=== PATIENT | female | born 1975 | race Caucasian/White ===

== ENCOUNTER 2022-01-01 10:50 | Emergency (ER) | payer OTHER ==
[~2022-01-01] VITALS: Ht 165.1 cm; Wt 95.5 kg
[2022-01-01 13:31] VITALS: BP 137/93
== END 2022-01-01 13:58 | disposition home or self-care (01) ==
LOC: EMS 10:50
DX: S93.401A Sprain of unspecified ligament of right ankle, initial encounter (principal); W10.8XXA Fall (on) (from) other stairs and steps, initial encounter; Y93.E2 Activity, laundry; Y92.89 Other specified places as the place of occurrence of the external cause; Y99.8 Other external cause status
CPT/HCPCS: 99284; 73610-TC; 73630-TC; Z7502

== ENCOUNTER 2024-12-30 08:53 | Emergency (ER) | payer OTHER ==
[~2024-12-30] VITALS: Ht 165.1 cm; Wt 95.9 kg
[2024-12-30] MEDS ORDERED: IBUP-45 PO (09:05)
[2024-12-30] MEDS ORDERED: METF-1211 PO (09:05)
[2024-12-30 09:20] LABS: GLUCOMETER DEV NAME(LOC) ER.7; GLUCOSE,POINT OF CARE 129 MG/DL (70-110)
[2024-12-30] MEDS: IBUPROFEN 600 MG TABLET PO ONE (10:08)
[2024-12-30] MEDS ORDERED: PRED-549 PO (10:45)
[2024-12-30] MEDS ORDERED: ATOR10TA PO (10:45)
[2024-12-30] MEDS ORDERED: ACET-2247 PO (10:45)
[2024-12-30] MEDS ORDERED: SERT-158 PO (10:45)
[2024-12-30] MEDS ORDERED: DULO60CA73 PO (10:45)
[2024-12-30 12:31] VITALS: TEMP 97.9
[2024-12-30] MEDS ORDERED: IBUP-1492 PO (12:33)
[2024-12-30 13:30] VITALS: BP 156/88; PULSE 74; RESP 16; O2SAT 100
== END 2024-12-30 13:34 | disposition home or self-care (01) ==
LOC: EMS 09:01
DX: M25.561 Pain in right knee (principal); Z79.899 Other long term (current) drug therapy
CPT/HCPCS: 29530; 82962; 99283